=== PATIENT | female | born 1980 | race Caucasian/White ===

== ENCOUNTER 2024-07-18 16:18 | Emergency (ER) | payer OTHER, SELFPAY ==
[2024-07-18 16:31] VITALS: BP 151/84; PULSE 79; RESP 16; TEMP 36.4; O2SAT 100
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
--- OUTSIDE RECORDS SUMMARY | 2024-07-18 16:55 | XMS_ITS | Referral Summary ---
Author Organization [facility] Healthcare Address [address] [place] [address] Care Team Providers Care Windows 7 Deployment Lead Name Role Phone No, Physician Primary Care Provider [phone] Allergies No known active allergies Medications albuterol HFA (PROVENTIL HFA,VENTOLIN HFA,PROAIR HFA) 90 mcg/actuation inhaler Inhale 2 puffs every 6 (six) hours as needed for wheezing Active EPINEPHrine 0.3 mg/0.3 mL auto-injection syringeIndicati ons:Anaphylaxis Inject 1 Syringe into the muscle as instructed Active Active Problems No known active problems Social History Tobacco Use Types Packs/Day Years Used Date Smoking Tobacco: Never Smokeless Tobacco: Never Personal Safety Answer Date Recorded Getting School Help Needed Not on file 06/16 Comments Unknown Sex and Gender Information Value Date Recorded Sex Assigned at Not on file 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 Gender Identity Not on file Sexual Orientation Not on file Last Filed Vital Signs Vital Sign Reading Time Taken Comments Blood Pressure 128/90 10/09/2019 11:22 AM CDT Pulse 86 10/09/2019 11:22 AM CDT Temperature 37 C (98.6 F) 10/09/2019 11:22 AM CDT Respiratory Rate 20 10/09/2019 11:22 AM CDT Oxygen Saturation 99% 10/09/2019 11:22 AM CDT Inhaled Oxygen Concentration - - Weight 139.3 kg (307 lb) 10/09/2019 11:22 AM CDT Height 170.2 cm (5' 7 ) 10/09/2019 11:22 AM CDT Body Mass Index 48.08 10/09/2019 11:22 AM CDT Plan of Treatment Not on file Care Teams Windows 7 Deployment Lead Relationship Specialty Start Date End Date No, Physician PCP - General 10/09/19
--- OUTSIDE RECORDS SUMMARY | 2024-07-18 16:55 | XMS_ITS | Clinical Summary ---
Author Organization [facility] Address [address] [place] [address] Phone Care Team Providers Care Postmaster Name Role Phone Hayder Watts APRN, SCIENTIFIC PROGRAMMER ANALYST Primary Care Pr ovider Allergies No known active allergies Medications albuterol 108 (90 Base) MCG/ACT Aerosol SolutionIndica tions:Anaphyla xis, initial encounter take 2 Puffs by inhalation every 4 hours as needed for Wheezing or Cough. 18 g 5 3 Active Semaglutide,0. 25 or 0.5MG/DOS, (Ozempic, 0.25 or 0.5 MG/DOSE,) 2 MG/3ML Solution Pen-injectorIn dications:Morb id obesity with BMI of 45.0-49.9, adult (HCC) 0.5 mg by Subcutaneous route once a week. 3 mL 2 3 Active EPINEPHrine (EPIPEN) 0.3 MG/0.3ML Solution Auto-injector 0.3 mL by Intramuscular route once as needed for Anaphylaxis. 2 mL 1 4 Active Beclomethasone Diprop HFA (Qvar RediHaler) 80 MCG/ACT AEROSOL, BREATH ACTIVATED take 1 Puff by inhalation 2 times daily. 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 Asthma 05/25/2022 Environmental allergies 05/25/2022 Encounters Date Type Department Care Team Description 07/18/2024 Nurse Triage [facility] [address] [place] [id number] Hayder Watts APRN, CNP Human Bite 05/08/2024 Telephone [facility] [address] [place] [address] Hayder Watts APRN, CNP Medication Refill 05/08/2024 Telephone [facility] [address] [place] [address] Hayder Watts APRN, CNP Prior Authorization from Last 3 Months Immunizations Immunization Administration Dates Next Due TD VACCINE 02/24/2004 Social History Tobacco Use Types Packs/Day Years Used Date Smoking Tobacco: Never Tobacco Cessation:Counseling Given: No Alcohol Use Standard Drinks/Week Comments No 0 (1 standard drink = 0.6 oz pur e alcohol) PHQ-2 Answer Date Recorded Total Score - Questions 1-9 0 01/02 Education Answer Date Recorded What is the highest level of school you have completed or the highest degree you have received? Bachelor's degree (e.g., BA, AB, BS) 09/23/2022 Comments No Sex and Gender Information Value Date Recorded Sex Assigned at Not on file Legal Sex Female 7:58 PM CDT Gender Identity Not on file Sexual Orientation Not on file Last Filed Vital Signs Vital Sign Reading Time Taken Comments Blood Pressure 124/78 01/19/2024 11:00 AM CDT Pulse 75 01/19/2024 11:00 AM CDT Temperature 36.6 C (97.8 F) 01/19/2024 11:00 AM CDT Respiratory Rate 16 01/19/2024 11:00 AM CDT Oxygen Saturation 98% 01/19/2024 11:00 AM CDT Inhaled Oxygen Concentration - - Weight 144.7 kg (319 lb) 01/19/2024 11:00 AM CDT Height 170.2 cm (5' 7 ) 01/19/2024 11:00 AM CDT Body Mass Index 49.96 01/19/2024 11:00 AM CDT Plan of Treatment Upcoming Encounters Date Type Department Care Team (Late Contact Info) Description 01/17/2025 11:00 AM CDT Office Visit [facility] - Family Medicine - [address] [place] [address] Hayder Watts, STREETCAR DISPATCHER, SCIENTIFIC PROGRAMMER ANALYST [address] [place] [address] Health Maintenance Due Date Last Done Comments Hepatitis C Virus (HCV) Screening 1978 Mammogram 1978 TdaP Immunization 1978 Hepatitis B Immunization (1 of 3 - 19+ 3-dose series) 1997 Pneumococcal Immunization Combined (1 of 2 - PCV) 1997 Pap Smear 1999 Cervical Cancer Screening (CCS) 02/01/2008 HPV/Cotest 02/01/2008 Discussion re Starting/Frequency of Mammograms 2018 Colonoscopy 2023 Colorectal Cancer Screening 2023 SARS-COV-2 Immunization ( season) 2023 07/18/2020, 06/20/2020 Influenza Immunization (Season Ended) 2024 Respiratory Syncytial Virus (RSV) Immunization (Adult) (1 - 1-dose 75+ series) 2053 DTaP/Tdap/Td Immunization Discontinued 02/24/2004 Meningococcal Immunization (ACWY) Aged Out No longer eligible based on patient's age to complete this topic Rotavirus Immunization Aged Out No lo nger eligible based on patient's age to complete this topic Insurance [place] [address] GENERIC Member Subscriber Plan / Payer ( [facility] 02/[facility]-Present) Name:Lovely Toure Relation to Subscriber:Self Name:Lovely Toure Payer ID:[id number] Group ID:[id number] Type:Not on file Address: [facility] [id number] [place] [address] [facility] Care Teams Postmaster Relationship Specialty Start Date End Date Hayder Watts, STREETCAR DISPATCHER, SCIENTIFIC PROGRAMMER ANALYST [address] [address] PCP - General Advanced Practice Nurse 05/25/22
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
--- OUTSIDE RECORDS SUMMARY | 2024-07-18 16:55 | XMS_ITS | Clinical Summary ---
Author Organization [facility] Address [address] [place] [address] Care Team Providers Care Director Of Event Sales Name Role Phone No, Physician Primary Care Provider [phone] Allergies No known active allergies Medications albuterol HFA (PROVENTIL HFA,VENTOLIN HFA,PROAIR HFA) 90 mcg/actuation inhaler Inhale 2 puffs every 6 (six) hours as needed for wheezing Active EPINEPHrine 0.3 mg/0.3 mL auto-injection syringeIndicati ons:Anaphylaxis Inject 1 Syringe into the muscle as instructed Active Active Problems No known active problems Medical History Medical History Date Comments Asthma Social History Tobacco Use Types Packs/Day Years Used Date Smoking Tobacco: Never Smokeless Tobacco: Never Personal Safety Answer Date Recorded Getting School Help Needed Not on file 06/16 Comments Unknown Sex and Gender Information Value Date Recorded Sex Assigned at Not on file Legal Sex Female 9: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
[2024-07-18] MEDS: TETANUS,DIPHTHERIA,AC PERTUSSIS ADULT (0.5 ML) BOOSTRIX IM (16:59)
== END 2024-07-18 17:08 | disposition home or self-care (01) ==
DX: S60.811A Abrasion of right wrist, initial encounter (principal); S60.417A Abrasion of left little finger, initial encounter; Z23 Encounter for immunization; W50.3XXA Accidental bite by another person, initial encounter
CPT/HCPCS: 90715; 99203; G0463